=== PATIENT | female | born 1990 | race Caucasian/White ===

== ENCOUNTER 2016-12-15 03:53 | Inpatient (IN) | payer OTHER ==
[~2016-12-15] VITALS: Ht 162.6 cm; Wt 76.6 kg
[~2016-12-15 03:53] MED LIST: ARIP1TAB7 PO; BENZ0.5T14 PO; CIPR-173 PO; GABA600T PO; HYDR25CA PO; INSLANTI; INSLISPI SC; METO-169 PO; PANT40T PO; PRAV20TA3 PO; SUCR1TAB PO
[2016-12-15] MEDS ORDERED: ONDANSETRON HCL 4 MG/2 ML VIAL IV ONE ×2 (04:15→04:45)
[2016-12-15] MEDS ORDERED: NALBUPHINE HCL 10 MG/1ml INJECTION IV ONE (04:45)
[2016-12-15] MEDS ORDERED: SODIUM CHLORIDE 0.9% 2,000 ML IV ONE (04:45)
[2016-12-15] MEDS ORDERED: DEXTROSE (50%) 50ML SYRG IV ONE (04:45)
[2016-12-15 04:52] LABS: Basophils # (auto) 0.1 uL; Basophils % (auto) 0.7 % (0.0-2.0); CONDITION Y; Eosinophils # (auto) 0 uL; Hematocrit 48.5 % (36.0-46.0); Hemoglobin 16.4 g/dL (12.2-16.2); Lymphocytes # (auto) 1.3 uL; Lymphocytes % (auto) 7.4 % (10.0-50.0); Mean Corpuscular Hgb Conc. 33.8 g/dL (32.0-36.0); Mean Platelet Volume 7.5 fL (7.4-10.4); Monocytes # (auto) 0.9 uL; Neutrophils # (auto) 15.5 uL; Neutrophils % (auto) 86.9 % (37.0-80.0); Platelet Count (auto) 398 10^3/uL (140-450); Red Cell Distribution Width 14.9 % (11.6-16.0); White Blood Cell 17.9 10^3/uL (4.4-10.8)
[2016-12-15 05:04] LABS: Albumin 3.8 g/dL (3.4-5.0); Amylase 69 U/L (25-115); Anion Gap 23 (5-15); Aspartate Aminotransferase 22 U/L (15-37); BUN/Creatinine Ratio 7.1; Blood Urea Nitrogen 14 mg/dL (7-18); Calcium 9.2 mg/dL (8.5-10.1); Carbon Dioxide 15 mmol/L (21-32); Chloride 109 mmol/L (98-107); GFR African American 39 mL/min; GFR Non-African American 32 mL/min; Glucose 56 mg/dL (74-106); Magnesium 2.1 mg/dL (1.6-2.6); Potassium 3.7 mmol/L (3.5-5.1); Sodium 147 mmol/L (136-145)
[2016-12-15 05:10] LABS: Alkaline Phosphatase 110 U/L (45-117); Bilirubin, Total 0.8 mg/dL (0.2-1.0); INR 0.93 (0.9-1.15); Partial Thromboplastin Time 21.5 sec (22.64-33.71); Prothrombin Time 10.1 sec (9.37-12.3); Total Protein 8.5 g/dL (6.4-8.2)
[2016-12-15 05:25] LABS: Allen Test Yes; Base Excess -4.2 mmol/L (-2.0-2.0); Blood 02Sat 96.1 % (96-100); Blood COHb 0.7 % (0.5-1.5); Blood MetHb 0.4 % (0.0-1.5); HCO3 18.7 mmol/L (22-26.0); HHb 3.9 % (0.0-5.0); MODE ROOM AIR; PCO2 29.5 mmHg (35.0-45.0); PCO2(T) 29.5 mmHg (35.0-45.0); PO2 79.2 mmHg (80.0-100.0); PO2(T) 79.2 mmHg (80.0-100.0); Sample Type Arterial; pH 7.419 (7.350-7.450)
[2016-12-15 07:19] LABS: Lactic Acid w/Reflex 3.2 mmol/L (0.4-2.0)
[2016-12-15 07:48] LABS: REFLEX LACTIC ACID YES OR NO YES
[2016-12-15] MEDS ORDERED: NITROGLYCERIN 0.4 MG SL TAB SL PRN (08:00)
[2016-12-15] MEDS ORDERED: DEXTROSE (50%) 50ML SYRG IV PRN ×2 (08:00→16:00)
[2016-12-15] MEDS ORDERED: DEXTROSE 10% 1,000 ML IV ONE (08:00)
[2016-12-15] MEDS: InsuLIN REG 1unit/0.01ml Soln (100units/ml) SC SCH ×5 (08:00→23:59)
[2016-12-15] MEDS ORDERED: SODIUM CHLORIDE 0.9% 1,000 ML IV ONE (08:00)
[2016-12-15] MEDS: ACCU-CHEK COMFORT CURVE STRIP VI SCH ×6 (08:05→23:58)
[2016-12-15] MEDS: MORPHINE SULF INJ 2 MG/ML SYRINGE 1ML IV PRN (08:05)
[2016-12-15] MEDS: ONDANSETRON HCL 4 MG/2 ML VIAL IV PRN ×2 (08:05→12:31)
[2016-12-15] MEDS ORDERED: ALPR0.5T PO (08:08)
[2016-12-15 08:35] LABS: BUN/Creatinine Ratio 9.7; Calcium 8.7 mg/dL (8.5-10.1); Potassium 4.3 mmol/L (3.5-5.1)
[2016-12-15] MEDS ORDERED: SODIUM CHLORIDE 0.9% 1,000 ML IV SCH (09:00)
[2016-12-15] MEDS ORDERED: PANTOPRAZOLE 40 MG/10 ML VIAL IV SCH (10:00)
[2016-12-15] MEDS: BENZTROPINE MESY 0.5 MG TAB PO SCH (10:33)
[2016-12-15] MEDS: METOPROLOL TARTRATE 50 MG TAB PO SCH ×2 (10:33→21:33)
[2016-12-15] MEDS: ENOXAPARIN SOD 40 MG/0.4 ML SYRINGE SC SCH (10:34)
[2016-12-15] MEDS: ACETAMINOPHEN 325 MG TAB PO PRN ×2 (10:37→21:35)
[2016-12-15 10:54] LABS: Urine Color Yellow (Yellow); Urine Hyaline Cast MANY /lpf (0 - 2); Urine Mucus FEW (None Seen); Urine Nitrite Negative (Negative); Urine RBC 1 /hpf (0 - 4); Urine Squamous Epithelial Cell FEW /hpf (<5)
[2016-12-15 11:19] LABS: Urine Bilirubin 1+ (Negative); Urine Blood 2+ /uL (Negative); Urine Glucose 4+ mg/dL (Normal); Urine Ketone 4+ (Negative)
[2016-12-15 11:28] VITALS: BP 114/66
[2016-12-15] MEDS: SUCRALFATE 1 GM TAB PO SCH ×3 (11:30→21:33)
[2016-12-15] MEDS ORDERED: IBUP800T24 PO (12:14)
[2016-12-15] MEDS: HYDROcodone-ACET 5/325MG TAB PO PRN ×2 (12:30→20:31)
[2016-12-15] MEDS: GABAPENTIN 300 MG CAP PO SCH ×2 (13:52→21:34)
[2016-12-15 14:01] LABS: BUN/Creatinine Ratio 7.8; Calcium 7.7 mg/dL (8.5-10.1); Potassium 3.7 mmol/L (3.5-5.1)
[2016-12-15] MEDS ORDERED: InsuLIN REG 1unit/0.01ml Soln (100units/ml) SC SCH (16:00)
[2016-12-15] MEDS ORDERED: ALUM & MAG HYDROX-SIMETH LIQ(MAALOX) 30 ML PO ONE (16:15)
[2016-12-15] MEDS: D5W/SOD CHL 0.45%/KCL 20MEQ 1,000 ML IV SCH (16:29)
[2016-12-15] MEDS ORDERED: NICOTINE 7MG/24HR TOPICAL PATCH TD ONE (16:45)
[2016-12-15 17:20] VITALS: BP 135/97
[2016-12-15] MEDS: PANTOPRAZOLE 40 MG/10 ML VIAL IV SCH (21:32)
[2016-12-15] MEDS: PRAVASTATIN SODIUM 20 MG TAB PO SCH (21:34)
[2016-12-15] MEDS: TEMAZEPAM 15 MG CAP PO PRN (21:35)
[2016-12-15 21:51] LABS: Calcium 7.5 mg/dL (8.5-10.1); Potassium 3.5 mmol/L (3.5-5.1)
[2016-12-15 22:00] VITALS: BP 132/79
[2016-12-15] MEDS ORDERED: cefTRIAXone 1GM/50ML D5W 50 ML IV ONE (23:30)
[2016-12-16 04:00] VITALS: BP 158/93
[2016-12-16] MEDS: InsuLIN REG 1unit/0.01ml Soln (100units/ml) SC SCH ×5 (04:11→20:00)
[2016-12-16] MEDS: ACCU-CHEK COMFORT CURVE STRIP VI SCH ×5 (04:11→21:10)
[2016-12-16] MEDS: D5W/SOD CHL 0.45%/KCL 20MEQ 1,000 ML IV SCH ×4 (04:12→17:36)
[2016-12-16] MEDS: GABAPENTIN 300 MG CAP PO SCH ×3 (05:38→21:20)
[2016-12-16] MEDS: SUCRALFATE 1 GM TAB PO SCH ×4 (06:20→21:21)
[2016-12-16 06:25] LABS: Basophils # (auto) 0.1 uL; Basophils % (auto) 0.6 % (0.0-2.0); CONDITION Y; Eosinophils # (auto) 0.1 uL; Eosinophils % (auto) 0.6 % (0.0-7.0); Hematocrit 41.3 % (36.0-46.0); Lymphocytes # (auto) 3.4 uL; Lymphocytes % (auto) 34.4 % (10.0-50.0); Mean Corpuscular Hemoglobin 30.6 pg (28.0-32.0); Mean Corpuscular Hgb Conc. 33.9 g/dL (32.0-36.0); Mean Corpuscular Volume 90.3 fL (80.0-100.0); Mean Platelet Volume 7.8 fL (7.4-10.4); Monocytes # (auto) 0.6 uL; Monocytes % (auto) 6.3 % (0.0-12.0); Neutrophils # (auto) 5.8 uL; Neutrophils % (auto) 58.1 % (37.0-80.0); Platelet Count (auto) 292 10^3/uL (140-450); Red Cell Distribution Width 15.7 % (11.6-16.0)
[2016-12-16 06:37] LABS: Potassium 3.5 mmol/L (3.5-5.1)
[2016-12-16 06:42] LABS: Albumin 2.9 g/dL (3.4-5.0); Calcium 8.1 mg/dL (8.5-10.1)
[2016-12-16 06:45] LABS: Bilirubin, Total 0.4 mg/dL (0.2-1.0); Total Protein 6.3 g/dL (6.4-8.2)
[2016-12-16 07:45] VITALS: BP 132/82
[2016-12-16 08:00] VITALS: BP 90/43
[2016-12-16] MEDS: ONDANSETRON HCL 4 MG/2 ML VIAL IV PRN (08:16)
[2016-12-16] MEDS: PANTOPRAZOLE 40 MG/10 ML VIAL IV SCH ×2 (09:42→21:18)
[2016-12-16] MEDS: BENZTROPINE MESY 0.5 MG TAB PO SCH (09:42)
[2016-12-16] MEDS: METOPROLOL TARTRATE 50 MG TAB PO SCH ×2 (09:43→21:22)
[2016-12-16] MEDS: NICOTINE 7MG/24HR TOPICAL PATCH TD SCH (09:44)
[2016-12-16] MEDS: HYDROcodone-ACET 5/325MG TAB PO PRN ×2 (09:54→14:41)
[2016-12-16] MEDS: ENOXAPARIN SOD 40 MG/0.4 ML SYRINGE SC SCH (11:41)
[2016-12-16 12:12] VITALS: BP 94/54
[2016-12-16] MEDS: ALUM & MAG HYDROX-SIMETH LIQ(MAALOX) 30 ML PO PRN ×2 (14:40→21:18)
[2016-12-16 15:30] VITALS: BP 105/65
[2016-12-16] MEDS ORDERED: NovoloG Insulin 1unit/0.01ml Soln (100units/ml) SC SCH ×3 (17:00)
[2016-12-16] MEDS: NovoloG Insulin 1unit/0.01ml Soln (100units/ml) SC SCH (18:25)
[2016-12-16] MEDS: PRAVASTATIN SODIUM 20 MG TAB PO SCH (21:20)
[2016-12-16] MEDS: ALPRAZolam 0.5 MG TAB PO SCH (21:22)
[2016-12-16 22:00] VITALS: BP 113/70
[2016-12-16] MEDS ORDERED: cefTRIAXone 1GM/50ML D5W 50 ML IV SCH (22:00)
[2016-12-16] MEDS: INSULIN DETEMIR(LEVEMIR) 1unit/0.01ml Soln (100units/ml) SC SCH (22:00)
[2016-12-16] MEDS: MORPHINE SULF INJ 2 MG/ML SYRINGE 1ML IV PRN (22:07)
[2016-12-17] MEDS: InsuLIN REG 1unit/0.01ml Soln (100units/ml) SC SCH ×3 (00:09→09:39)
[2016-12-17] MEDS: ACCU-CHEK COMFORT CURVE STRIP VI SCH ×6 (00:09→22:11)
[2016-12-17] MEDS: HYDROcodone-ACET 5/325MG TAB PO PRN ×5 (00:14→21:05)
[2016-12-17] MEDS: D5W/SOD CHL 0.45%/KCL 20MEQ 1,000 ML IV SCH ×2 (03:31→09:39)
[2016-12-17 05:00] VITALS: BP 111/75
[2016-12-17] MEDS: ALPRAZolam 0.5 MG TAB PO SCH ×3 (07:22→22:10)
[2016-12-17] MEDS: GABAPENTIN 300 MG CAP PO SCH ×3 (07:22→22:10)
[2016-12-17] MEDS: SUCRALFATE 1 GM TAB PO SCH ×4 (07:23→22:00)
[2016-12-17 08:32] VITALS: BP 123/84
[2016-12-17] MEDS: NovoloG Insulin 1unit/0.01ml Soln (100units/ml) SC SCH ×3 (09:40→18:32)
[2016-12-17] MEDS: ENOXAPARIN SOD 40 MG/0.4 ML SYRINGE SC SCH (10:00)
[2016-12-17] MEDS: NICOTINE 7MG/24HR TOPICAL PATCH TD SCH (10:00)
[2016-12-17] MEDS: PANTOPRAZOLE 40 MG/10 ML VIAL IV SCH ×2 (10:01→22:11)
[2016-12-17] MEDS: BENZTROPINE MESY 0.5 MG TAB PO SCH (10:01)
[2016-12-17] MEDS: METOPROLOL TARTRATE 50 MG TAB PO SCH ×2 (10:02→22:11)
[2016-12-17 13:00] VITALS: BP 105/67
[2016-12-17 16:43] VITALS: BP 135/91
[2016-12-17] MEDS ORDERED: DEXTROSE (50%) 50ML SYRG IV PRN (18:30)
[2016-12-17 22:00] VITALS: BP 130/91
[2016-12-17] MEDS ORDERED: InsuLIN REG 1unit/0.01ml Soln (100units/ml) SC SCH (22:00)
[2016-12-17] MEDS: PRAVASTATIN SODIUM 20 MG TAB PO SCH (22:10)
[2016-12-17] MEDS: INSULIN DETEMIR(LEVEMIR) 1unit/0.01ml Soln (100units/ml) SC SCH (22:18)
[2016-12-17] MEDS: TEMAZEPAM 15 MG CAP PO PRN (23:18)
[2016-12-18 05:00] VITALS: BP 133/88
[2016-12-18] MEDS: ACCU-CHEK COMFORT CURVE STRIP VI SCH ×4 (06:26→22:58)
[2016-12-18] MEDS: ALPRAZolam 0.5 MG TAB PO SCH ×3 (06:26→21:34)
[2016-12-18] MEDS: GABAPENTIN 300 MG CAP PO SCH ×3 (06:26→21:34)
[2016-12-18] MEDS: InsuLIN REG 1unit/0.01ml Soln (100units/ml) SC SCH ×2 (06:27→12:00)
[2016-12-18] MEDS: SUCRALFATE 1 GM TAB PO SCH ×4 (07:00→21:34)
[2016-12-18] MEDS: NovoloG Insulin 1unit/0.01ml Soln (100units/ml) SC SCH ×3 (08:00→18:13)
[2016-12-18] MEDS: HYDROcodone-ACET 5/325MG TAB PO PRN ×4 (08:10→21:14)
[2016-12-18 08:47] VITALS: BP 131/86
[2016-12-18] MEDS: BENZTROPINE MESY 0.5 MG TAB PO SCH (10:00)
[2016-12-18] MEDS: NICOTINE 7MG/24HR TOPICAL PATCH TD SCH (10:00)
[2016-12-18] MEDS: ENOXAPARIN SOD 40 MG/0.4 ML SYRINGE SC SCH (10:00)
[2016-12-18] MEDS: PANTOPRAZOLE 40 MG/10 ML VIAL IV SCH ×2 (10:19→21:34)
[2016-12-18] MEDS: METOPROLOL TARTRATE 50 MG TAB PO SCH ×2 (10:52→21:35)
[2016-12-18 12:39] VITALS: BP 132/78
[2016-12-18 17:00] VITALS: BP 132/87
[2016-12-18] MEDS: PRAVASTATIN SODIUM 20 MG TAB PO SCH (21:34)
[2016-12-18 22:00] VITALS: BP 131/86
[2016-12-18] MEDS: INSULIN DETEMIR(LEVEMIR) 1unit/0.01ml Soln (100units/ml) SC SCH (22:57)
[2016-12-19] MEDS: HYDROcodone-ACET 5/325MG TAB PO PRN (04:48)
[2016-12-19] MEDS: ALUM & MAG HYDROX-SIMETH LIQ(MAALOX) 30 ML PO PRN (04:51)
[2016-12-19 05:00] VITALS: BP_SYST 156; BP_SYST 159; BP_DIAS 95; BP_DIAS 99
[2016-12-19 06:06] LABS: BUN/Creatinine Ratio 14.6; Calcium 8.3 mg/dL (8.5-10.1); Potassium 3.7 mmol/L (3.5-5.1)
[2016-12-19] MEDS: SUCRALFATE 1 GM TAB PO SCH ×2 (06:06→12:04)
[2016-12-19] MEDS: GABAPENTIN 300 MG CAP PO SCH ×2 (06:06→13:59)
[2016-12-19] MEDS: ALPRAZolam 0.5 MG TAB PO SCH ×2 (06:06→13:59)
[2016-12-19] MEDS: ACCU-CHEK COMFORT CURVE STRIP VI SCH ×2 (06:08→12:04)
[2016-12-19 06:13] VITALS: BP 156/92
[2016-12-19] MEDS: NovoloG Insulin 1unit/0.01ml Soln (100units/ml) SC SCH ×2 (08:32→12:00)
[2016-12-19 09:00] VITALS: BP 147/89
[2016-12-19] MEDS: BENZTROPINE MESY 0.5 MG TAB PO SCH (10:00)
[2016-12-19] MEDS: PANTOPRAZOLE 40 MG/10 ML VIAL IV SCH (10:36)
[2016-12-19] MEDS: ENOXAPARIN SOD 40 MG/0.4 ML SYRINGE SC SCH (10:36)
[2016-12-19] MEDS: METOPROLOL TARTRATE 50 MG TAB PO SCH (10:38)
[2016-12-19] MEDS: NICOTINE 7MG/24HR TOPICAL PATCH TD SCH (10:41)
[2016-12-19 13:11] VITALS: BP 160/100
[2016-12-19 13:21] VITALS: BP 160/100
[2016-12-19 13:37] VITALS: BP 160/100
== END 2016-12-19 14:00 | disposition home or self-care (01) | DRG 420 ==
LOC: ER 03:55 → TELE 03:56 → TELE-E-ADS 11:01 → TELE-EAST 13:31
PROVIDERS: ADMIT Nurse Practitioner; ATTEND Internal Medicine Pulmonary Disease
DX: E10.10 Type 1 diabetes mellitus with ketoacidosis without coma (principal); E87.0 Hyperosmolality and hypernatremia; E87.8 Other disorders of electrolyte and fluid balance, not elsewhere classified; E86.0 Dehydration; K21.9 Gastro-esophageal reflux disease without esophagitis; I10 Essential (primary) hypertension; E78.5 Hyperlipidemia, unspecified; F15.90 Other stimulant use, unspecified, uncomplicated; F41.9 Anxiety disorder, unspecified; M94.0 Chondrocostal junction syndrome [Tietze]; K25.9 Gastric ulcer, unspecified as acute or chronic, without hemorrhage or perforation; K29.70 Gastritis, unspecified, without bleeding; F17.210 Nicotine dependence, cigarettes, uncomplicated; Z79.4 Long term (current) use of insulin; Z79.899 Other long term (current) drug therapy; Z80.1 Family history of malignant neoplasm of trachea, bronchus and lung; Z82.49 Family history of ischemic heart disease and other diseases of the circulatory system; Z80.9 Family history of malignant neoplasm, unspecified
CPT/HCPCS: 36415; 36600; 71010; 71250; 74176; 76705; 80048; 80053; 80307; 80320; 81001; 81025; 82010; 82150; 82805; 82962; 83036; 83605; 83690; 83735; 83930; 84484; 84702; 85025; 85610; 85730; 93005; 96361; 96374; 96375; 99291; C9113; J0696; J1815; J2405

== ENCOUNTER 2016-12-20 20:10 | Inpatient (IN) | payer SELFPAY ==
[~2016-12-20] VITALS: Ht 162.6 cm; Wt 71.8 kg
[~2016-12-20 20:10] MED LIST changes: +ALPR0.5T PO; -BENZ0.5T14 PO; -CIPR-173 PO; -HYDR25CA PO; +IBUP800T24 PO; -PANT40T PO; -PRAV20TA3 PO; -SUCR1TAB PO
[2016-12-20] MEDS ORDERED: SODIUM CHLORIDE 0.9% 1,000 ML IV ONE ×2 (20:45→21:45)
[2016-12-20] MEDS ORDERED: MORPHINE SULF INJ 2 MG/ML SYRINGE 1ML IV ONE (20:45)
[2016-12-20] MEDS ORDERED: ONDANSETRON HCL 4 MG/2 ML VIAL IV ONE (20:45)
[2016-12-20 21:14] LABS: Basophils # (auto) 0 uL; Basophils % (auto) 0.3 % (0.0-2.0); CONDITION Y; Eosinophils # (auto) 0 uL; Eosinophils % (auto) 0.1 % (0.0-7.0); Hemoglobin 13.9 g/dL (12.2-16.2); Lymphocytes # (auto) 1.4 uL; Lymphocytes % (auto) 14.8 % (10.0-50.0); Mean Corpuscular Hemoglobin 29.8 pg (28.0-32.0); Mean Corpuscular Hgb Conc. 33.2 g/dL (32.0-36.0); Mean Corpuscular Volume 89.9 fL (80.0-100.0); Mean Platelet Volume 7.7 fL (7.4-10.4); Monocytes # (auto) 0.5 uL; Monocytes % (auto) 5.2 % (0.0-12.0); Neutrophils # (auto) 7.8 uL; Neutrophils % (auto) 79.6 % (37.0-80.0); Platelet Count (auto) 400 10^3/uL (140-450); Red Cell Distribution Width 15.5 % (11.6-16.0); White Blood Cell 9.8 10^3/uL (4.4-10.8)
[2016-12-20 21:34] LABS: Albumin 3.6 g/dL (3.4-5.0); Anion Gap 29 (5-15); Aspartate Aminotransferase 13 U/L (15-37); BUN/Creatinine Ratio 9.9; Blood Urea Nitrogen 17 mg/dL (7-18); Carbon Dioxide 10 mmol/L (21-32); Chloride 106 mmol/L (98-107); GFR African American 46 mL/min; GFR Non-African American 38 mL/min; Magnesium 2.7 mg/dL (1.6-2.6); Potassium 3.6 mmol/L (3.5-5.1); Sodium 145 mmol/L (136-145)
[2016-12-20 21:38] LABS: Alkaline Phosphatase 120 U/L (45-117); Total Protein 7.6 g/dL (6.4-8.2)
[2016-12-20 21:40] LABS: Glucose 408 mg/dL (74-106)
[2016-12-20] MEDS ORDERED: SODIUM CHLORIDE 0.9% 1,000 ML IVB ONE (21:40)
[2016-12-20 21:46] LABS: INR 0.94 (0.9-1.15); Partial Thromboplastin Time 21.4 sec (22.64-33.71); Prothrombin Time 10.2 sec (9.37-12.3)
[2016-12-20] MEDS ORDERED: InsuLIN R (HUMAN) 100 UNITS in SODIUM CHL 0.9% 99 ML IV SCH (21:52)
[2016-12-20] MEDS ORDERED: SODIUM CHLORIDE 0.9% 1,000 ML IV SCH (21:52)
[2016-12-20 21:54] LABS: B-Type Natriuretic Peptide 58.4 pg/mL (0-100); Temperature: 22.3 C (20.0-25.0)
[2016-12-20] MEDS ORDERED: DEXTROSE (50%) 50ML SYRG IV PRN (22:00)
[2016-12-20 22:12] LABS: Allen Test Modified; Base Excess -7.2 mmol/L (-2.0-2.0); Blood COHb 0.3 % (0.5-1.5); Blood MetHb 0.4 % (0.0-1.5); HCO3 15.7 mmol/L (22-26.0); MODE NASAL CANNULA; O2Hb 96.3 % (94.0-97.0); PCO2 25.7 mmHg (35.0-45.0); PCO2(T) 25.7 mmHg (35.0-45.0); PO2 105.5 mmHg (80.0-100.0); PO2(T) 105.5 mmHg (80.0-100.0); Sample Type Arterial; pH 7.405 (7.350-7.450)
[2016-12-20] MEDS: ACCU-CHEK COMFORT CURVE STRIP VI SCH (22:28)
[2016-12-20] MEDS ORDERED: PANTOPRAZOLE 40 MG/10 ML VIAL IV ONE (22:30)
[2016-12-21] VITALS (21 sets, daily range): BP systolic 95–161; BP diastolic 49–103
[2016-12-21] MEDS: ACCU-CHEK COMFORT CURVE STRIP VI SCH ×9 (00:26→23:47)
[2016-12-21] MEDS ORDERED: DEXTROSE (50%) 50ML SYRG IV PRN ×2 (00:45→17:15)
[2016-12-21] MEDS ORDERED: TEMAZEPAM 15 MG CAP PO PRN (00:45)
[2016-12-21 00:58] LABS: Urine RBC None Seen /hpf (0 - 4)
[2016-12-21 01:07] LABS: Urine Bilirubin Negative (Negative); Urine Blood Negative /uL (Negative); Urine Color Yellow (Yellow); Urine Mucus FEW (None Seen); Urine Nitrite Negative (Negative); Urine Squamous Epithelial Cell FEW /hpf (<5); Urine Urobilinogen Normal (Negative)
[2016-12-21 01:08] LABS: Urine Glucose 4+ mg/dL (Normal); Urine Ketone 4+ (Negative)
[2016-12-21] MEDS: ONDANSETRON HCL 4 MG/2 ML VIAL IV PRN ×3 (01:18→16:13)
[2016-12-21] MEDS: HYDROcodone-ACET 5/325MG TAB PO PRN ×4 (01:24→16:12)
[2016-12-21] MEDS ORDERED: SODIUM CHLORIDE 0.9% 1,000 ML IV SCH (01:52)
[2016-12-21] MEDS: SODIUM CHLORIDE 0.9% 1,000 ML IV SCH ×3 (03:44→19:10)
[2016-12-21] MEDS: InsuLIN REG 1unit/0.01ml Soln (100units/ml) SC SCH ×4 (03:50→16:00)
[2016-12-21] MEDS: GABAPENTIN 300 MG CAP PO SCH ×3 (05:53→21:42)
[2016-12-21 05:58] LABS: BUN/Creatinine Ratio 12.5; Calcium 8.7 mg/dL (8.5-10.1)
[2016-12-21] MEDS: METOPROLOL TARTRATE 50 MG TAB PO SCH ×2 (10:00→21:43)
[2016-12-21] MEDS: PANTOPRAZOLE 40 MG/10 ML VIAL IV SCH (10:07)
[2016-12-21 10:16] LABS: Calcium 8.7 mg/dL (8.5-10.1); Potassium 4.2 mmol/L (3.5-5.1)
[2016-12-21 10:18] LABS: BUN/Creatinine Ratio 12.6
[2016-12-21 16:43] LABS: Calcium 8.5 mg/dL (8.5-10.1); Potassium 4.3 mmol/L (3.5-5.1)
[2016-12-21 16:46] LABS: BUN/Creatinine Ratio 8.4
[2016-12-21] MEDS ORDERED: ACCU-CHEK COMFORT CURVE STRIP VI SCH (18:00)
[2016-12-21] MEDS: InsuLIN R (HUMAN) 100 UNITS in SODIUM CHL 0.9% 99 ML IV SCH ×3 (19:30→23:48)
[2016-12-21] MEDS: ACETAMINOPHEN 325 MG TAB PO PRN (21:42)
[2016-12-21 22:05] LABS: Calcium 8.2 mg/dL (8.5-10.1); Potassium 3.8 mmol/L (3.5-5.1)
[2016-12-22] VITALS (20 sets, daily range): BP systolic 94–142; BP diastolic 54–100
[2016-12-22] MEDS: SODIUM CHLORIDE 0.9% 1,000 ML IV SCH ×2 (00:54→06:04)
[2016-12-22] MEDS: ACCU-CHEK COMFORT CURVE STRIP VI SCH ×8 (01:21→21:54)
[2016-12-22] MEDS: InsuLIN R (HUMAN) 100 UNITS in SODIUM CHL 0.9% 99 ML IV SCH (01:52)
[2016-12-22 04:35] LABS: BUN/Creatinine Ratio 9.3; Basophils # (auto) 0 uL; Basophils % (auto) 0.5 % (0.0-2.0); CONDITION Y; Calcium 7.9 mg/dL (8.5-10.1); Eosinophils # (auto) 0.1 uL; Eosinophils % (auto) 1.1 % (0.0-7.0); Hematocrit 35.1 % (36.0-46.0); Hemoglobin 11.6 g/dL (12.2-16.2); Lymphocytes # (auto) 4.2 uL; Mean Corpuscular Hemoglobin 30.2 pg (28.0-32.0); Mean Corpuscular Hgb Conc. 33.2 g/dL (32.0-36.0); Mean Corpuscular Volume 91.2 fL (80.0-100.0); Mean Platelet Volume 7.4 fL (7.4-10.4); Monocytes # (auto) 0.7 uL; Monocytes % (auto) 6.7 % (0.0-12.0); Neutrophils # (auto) 4.7 uL; Neutrophils % (auto) 48.7 % (37.0-80.0); Platelet Count (auto) 347 10^3/uL (140-450); Potassium 3.4 mmol/L (3.5-5.1); Red Cell Distribution Width 15.9 % (11.6-16.0); White Blood Cell 9.7 10^3/uL (4.4-10.8)
[2016-12-22] MEDS ORDERED: DEXTROSE (50%) 50ML SYRG IV PRN ×2 (06:00→11:00)
[2016-12-22] MEDS ORDERED: ACCU-CHEK COMFORT CURVE STRIP VI SCH (08:00)
[2016-12-22] MEDS ORDERED: InsuLIN REG 1unit/0.01ml Soln (100units/ml) SC SCH (08:00)
[2016-12-22] MEDS: PANTOPRAZOLE 40 MG/10 ML VIAL IV SCH (09:48)
[2016-12-22] MEDS: METOPROLOL TARTRATE 50 MG TAB PO SCH ×2 (10:52→21:54)
[2016-12-22] MEDS: ACETAMINOPHEN 325 MG TAB PO PRN ×2 (10:53→21:55)
[2016-12-22] MEDS ORDERED: POTASSIUM CHL 20 Meq TABLET PO ONE (11:00)
[2016-12-22] MEDS: InsuLIN REG 1unit/0.01ml Soln (100units/ml) SC SCH ×3 (11:36→21:54)
[2016-12-22] MEDS: INSULIN DETEMIR(LEVEMIR) 1unit/0.01ml Soln (100units/ml) SC SCH (22:20)
[2016-12-23 04:30] VITALS: BP 147/89
[2016-12-23] MEDS: InsuLIN REG 1unit/0.01ml Soln (100units/ml) SC SCH ×4 (07:00→22:52)
[2016-12-23] MEDS: INSULIN DETEMIR(LEVEMIR) 1unit/0.01ml Soln (100units/ml) SC SCH (07:00)
[2016-12-23] MEDS: ACCU-CHEK COMFORT CURVE STRIP VI SCH ×4 (07:01→22:52)
[2016-12-23 09:29] VITALS: BP 125/89
[2016-12-23] MEDS: PANTOPRAZOLE 40 MG/10 ML VIAL IV SCH (10:39)
[2016-12-23] MEDS: METOPROLOL TARTRATE 50 MG TAB PO SCH ×2 (10:40→22:53)
[2016-12-23] MEDS: NovoloG Insulin 1unit/0.01ml Soln (100units/ml) SC SCH ×2 (11:30→17:00)
[2016-12-23 11:59] VITALS: BP 129/71
[2016-12-23 17:01] VITALS: BP 117/66
[2016-12-23 22:00] VITALS: BP 153/91
[2016-12-23] MEDS ORDERED: INSULIN DETEMIR(LEVEMIR) 1unit/0.01ml Soln (100units/ml) SC SCH (22:00)
[2016-12-24 05:00] VITALS: BP 156/93
[2016-12-24] MEDS: NovoloG Insulin 1unit/0.01ml Soln (100units/ml) SC SCH ×3 (06:01→17:00)
[2016-12-24] MEDS: ACCU-CHEK COMFORT CURVE STRIP VI SCH ×3 (06:01→16:41)
[2016-12-24] MEDS: InsuLIN REG 1unit/0.01ml Soln (100units/ml) SC SCH ×3 (06:02→17:00)
[2016-12-24] MEDS ORDERED: INSULIN DETEMIR(LEVEMIR) 1unit/0.01ml Soln (100units/ml) SC SCH (07:00)
[2016-12-24 09:00] VITALS: BP 149/98
[2016-12-24] MEDS: PANTOPRAZOLE 40 MG/10 ML VIAL IV SCH (10:28)
[2016-12-24] MEDS: METOPROLOL TARTRATE 50 MG TAB PO SCH (10:29)
[2016-12-24 13:00] VITALS: BP 112/77
[2016-12-24 17:00] VITALS: BP 127/87
[2016-12-24 18:37] VITALS: BP 112/77
== END 2016-12-24 20:16 | disposition home or self-care (01) | DRG 637 ==
LOC: EDBD 20:10 → ER 20:12 → TELE 20:13 → CENTRAL 12-21 01:25 → ICU WEST 12-21 18:45 → TELE-WESTW 12-22 13:44 → WEST WING 12-22 19:41
PROVIDERS: ADMIT Nurse Practitioner; ATTEND Internal Medicine Pulmonary Disease
DX: E10.10 Type 1 diabetes mellitus with ketoacidosis without coma (principal); N17.0 Acute kidney failure with tubular necrosis; J98.11 Atelectasis; Z59.0 Homelessness; K21.9 Gastro-esophageal reflux disease without esophagitis; K29.00 Acute gastritis without bleeding; Z72.0 Tobacco use; E86.0 Dehydration; Z91.14 Patient's other noncompliance with medication regimen; Z91.19 Patient's noncompliance with other medical treatment and regimen; E78.5 Hyperlipidemia, unspecified; Z80.1 Family history of malignant neoplasm of trachea, bronchus and lung; Z82.49 Family history of ischemic heart disease and other diseases of the circulatory system
CPT/HCPCS: 36415; 36600; 71010; 80048; 80053; 81001; 81025; 82010; 82805; 82962; 83735; 83880; 84484; 85025; 85610; 85730; 87081; 93005; 96361; 96374; 96375; C9113; J1815; J2405

== ENCOUNTER 2016-12-29 21:09 | Emergency (ER) | payer MEDICAID, OTHER ==
[~2016-12-29] VITALS: Ht 160 cm; Wt 63.5 kg
[2016-12-29 21:47] LABS: Basophils # (auto) 0 uL; Basophils % (auto) 0.4 % (0.0-2.0); CONDITION Y; Eosinophils # (auto) 0.1 uL; Eosinophils % (auto) 0.6 % (0.0-7.0); Hemoglobin 14.3 g/dL (12.2-16.2); Lymphocytes # (auto) 3.3 uL; Mean Corpuscular Hemoglobin 30.3 pg (28.0-32.0); Mean Corpuscular Hgb Conc. 33.2 g/dL (32.0-36.0); Mean Corpuscular Volume 91.4 fL (80.0-100.0); Mean Platelet Volume 7.2 fL (7.4-10.4); Monocytes # (auto) 0.6 uL; Monocytes % (auto) 6.4 % (0.0-12.0); Neutrophils # (auto) 5.4 uL; Neutrophils % (auto) 57.6 % (37.0-80.0); Platelet Count (auto) 361 10^3/uL (140-450); Red Cell Distribution Width 16.3 % (11.6-16.0); White Blood Cell 9.3 10^3/uL (4.4-10.8)
[2016-12-29 22:09] LABS: Acetaminophen < 2.0 ug/mL (10-30); Salicylate < 1.7 mg/dL (2.8-20.0)
[2016-12-29 22:16] LABS: Albumin 3.8 g/dL (3.4-5.0); Alkaline Phosphatase 107 U/L (45-117); Anion Gap 9 (5-15); Aspartate Aminotransferase 11 U/L (15-37); BUN/Creatinine Ratio 17.5; Bilirubin, Total 0.7 mg/dL (0.2-1.0); Blood Urea Nitrogen 17 mg/dL (7-18); Calcium 9.7 mg/dL (8.5-10.1); Carbon Dioxide 30 mmol/L (21-32); Chloride 106 mmol/L (98-107); GFR African American 88 mL/min; GFR Non-African American 73 mL/min; Glucose 151 mg/dL (74-106); Potassium 3.8 mmol/L (3.5-5.1); Sodium 145 mmol/L (136-145); Total Protein 7.6 g/dL (6.4-8.2)
[2016-12-29] MEDS ORDERED: LORazepam 0.5 MG TAB PO ONE (22:45)
[2016-12-29 23:40] VITALS: BP 137/62
== END 2016-12-29 23:45 | disposition home or self-care (01) ==
LOC: EDBD 21:09 → ER 21:32
DX: E10.65 Type 1 diabetes mellitus with hyperglycemia (principal); F41.9 Anxiety disorder, unspecified; K21.9 Gastro-esophageal reflux disease without esophagitis; E78.5 Hyperlipidemia, unspecified; F17.210 Nicotine dependence, cigarettes, uncomplicated; Z59.0 Homelessness; F15.10 Other stimulant abuse, uncomplicated; F12.10 Cannabis abuse, uncomplicated
CPT/HCPCS: 36415; 80053; 80320; 80329; 82962; 85025; 93005

== ENCOUNTER 2017-05-07 19:57 | Emergency (ER) | payer MEDICAID ==
[~2017-05-07] VITALS: Ht 162.6 cm; Wt 74.8 kg
[2017-05-07 20:00] VITALS: BP 148/91
[2017-05-07 23:17] LABS: Basophils # (auto) 0 uL; Basophils % (auto) 0.6 % (0.0-2.0); Eosinophils # (auto) 0 uL; Eosinophils % (auto) 0.6 % (0.0-7.0); Hematocrit 43.2 % (36.0-46.0); Hemoglobin 14.1 g/dL (12.2-16.2); Lymphocytes # (auto) 2.2 uL; Mean Corpuscular Hemoglobin 30.9 pg (28.0-32.0); Mean Corpuscular Hgb Conc. 32.6 g/dL (32.0-36.0); Mean Corpuscular Volume 94.8 fL (80.0-100.0); Monocytes # (auto) 0.5 uL; Monocytes % (auto) 6.8 % (0.0-12.0); Neutrophils # (auto) 4.8 uL; Platelet Count (auto) 432 10^3/uL (140-450); Red Blood Cells 4.56 10^6/uL (4.0-5.20); White Blood Cell 7.7 10^3/uL (4.4-10.8)
[2017-05-07 23:31] LABS: Albumin 3.9 g/dL (3.4-5.0); BUN/Creatinine Ratio 15.6; Bilirubin, Total 1.2 mg/dL (0.2-1.0); Magnesium 2.6 mg/dL (1.6-2.6); Potassium 4.4 mmol/L (3.5-5.1)
== END 2017-05-07 23:00 | disposition left against medical advice (07) ==
LOC: EDBD 19:57 → EDSEX 19:57 → ER 20:22
DX: R73.9 Hyperglycemia, unspecified (principal); Z53.21 Procedure and treatment not carried out due to patient leaving prior to being seen by health care provider
CPT/HCPCS: 36415; 80053; 82962; 83735; 85025

== ENCOUNTER 2017-06-26 03:51 | Emergency (ER) | payer MEDICAID ==
[~2017-06-26] VITALS: Ht 157.5 cm; Wt 56.7 kg
[2017-06-26 07:55] LABS: Basophils # (auto) 0.1 uL; Eosinophils # (auto) 0 uL; Eosinophils % (auto) 0.3 % (0.0-7.0); Hematocrit 40.1 % (36.0-46.0); Hemoglobin 13.6 g/dL (12.2-16.2); Lymphocytes # (auto) 3.9 uL; Lymphocytes % (auto) 53.2 % (10.0-50.0); Mean Corpuscular Hemoglobin 30.4 pg (28.0-32.0); Mean Corpuscular Volume 89.4 fL (80.0-100.0); Monocytes # (auto) 0.5 uL; Monocytes % (auto) 7.4 % (0.0-12.0); Neutrophils # (auto) 2.7 uL; Neutrophils % (auto) 37.1 % (37.0-80.0); Nucleated Red Blood Cells % 0.1 %; Platelet Count (auto) 190 10^3/uL (140-450); Red Blood Cells 4.48 10^6/uL (4.0-5.20); Red Cell Distribution Width 14.2 % (11.8-14.3); White Blood Cell 7.3 10^3/uL (4.4-10.8)
[2017-06-26 08:23] LABS: Albumin 3.2 g/dL (3.4-5.0); BUN/Creatinine Ratio 13.2; Calcium 8.3 mg/dL (8.5-10.1)
[2017-06-26 08:26] LABS: Bilirubin, Total 0.6 mg/dL (0.2-1.0)
[2017-06-26 10:21] LABS: Alcohol, Urine < 3.0 mg/dL (0-5); Barbiturate Scree,Urine NEGATIVE (NEGATIVE); Benzodiazephine Screen, Urine NEGATIVE (NEGATIVE); Cannabinoid Screen, Urine NEGATIVE (NEGATIVE); Cocaine Screen, Urine NEGATIVE (NEGATIVE); Opiate Scree,Urine NEGATIVE (NEGATIVE); Phencyclidine Screen, Urine NEGATIVE (NEGATIVE); Urine Amorphous Crystal FEW /hpf (None Seen); Urine Bacteria MOD /hpf (None Seen); Urine Blood Negative /uL (Negative); Urine Mucus FEW (None Seen); Urine WBC 6 /hpf (0 - 5)
[2017-06-26 10:44] LABS: Amphetamine Screen, Urine POSITIVE (NEGATIVE)
[2017-06-26 11:05] VITALS: BP 129/89
== END 2017-06-26 11:22 | disposition home or self-care (01) ==
LOC: EDBD 03:51 → ER 03:51
DX: F31.9 Bipolar disorder, unspecified (principal); T74.21XA Adult sexual abuse, confirmed, initial encounter; E10.65 Type 1 diabetes mellitus with hyperglycemia; F15.10 Other stimulant abuse, uncomplicated; E46 Unspecified protein-calorie malnutrition; K21.9 Gastro-esophageal reflux disease without esophagitis; E78.5 Hyperlipidemia, unspecified; F17.210 Nicotine dependence, cigarettes, uncomplicated; F12.10 Cannabis abuse, uncomplicated; Z79.4 Long term (current) use of insulin; Z59.0 Homelessness
CPT/HCPCS: 36415; 80053; 80307; 81001; 82962; 84702; 85025

== ENCOUNTER 2017-06-26 15:41 | Emergency (ER) | payer MEDICAID ==
[~2017-06-26] VITALS: Ht 162.6 cm; Wt 59.0 kg
[2017-06-26 15:53] VITALS: BP 145/104
== END 2017-06-26 17:37 | disposition home or self-care (01) ==
LOC: ER 15:47
DX: E11.649 Type 2 diabetes mellitus with hypoglycemia without coma (principal); K21.9 Gastro-esophageal reflux disease without esophagitis; E78.5 Hyperlipidemia, unspecified; F17.210 Nicotine dependence, cigarettes, uncomplicated; Z59.0 Homelessness; Z79.4 Long term (current) use of insulin
CPT/HCPCS: 82962

== ENCOUNTER 2017-07-11 07:09 | Emergency (ER) | payer MEDICAID ==
[~2017-07-11] VITALS: Ht 162.6 cm; Wt 65.8 kg
[2017-07-11] MEDS ORDERED: SODIUM CHLORIDE 0.9% 250 ML IV ONE (08:38)
[2017-07-11 08:47] LABS: Basophils # (auto) 0.1 uL; Eosinophils # (auto) 0 uL; Eosinophils % (auto) 0.2 % (0.0-7.0); Hematocrit 39.3 % (36.0-46.0); Hemoglobin 13.1 g/dL (12.2-16.2); Lymphocytes # (auto) 3.3 uL; Lymphocytes % (auto) 35.5 % (10.0-50.0); Mean Corpuscular Hemoglobin 29.6 pg (28.0-32.0); Mean Corpuscular Hgb Conc. 33.4 g/dL (32.0-36.0); Mean Corpuscular Volume 88.7 fL (80.0-100.0); Monocytes # (auto) 0.6 uL; Neutrophils # (auto) 5.2 uL; Neutrophils % (auto) 56.3 % (37.0-80.0); Nucleated Red Blood Cells % 0.1 %; Platelet Count (auto) 298 10^3/uL (140-450); Red Blood Cells 4.44 10^6/uL (4.0-5.20); Red Cell Distribution Width 14.1 % (11.8-14.3); White Blood Cell 9.3 10^3/uL (4.4-10.8)
[2017-07-11 09:03] LABS: BUN/Creatinine Ratio 14.5; Calcium 8.7 mg/dL (8.5-10.1); Potassium 3.7 mmol/L (3.5-5.1)
[2017-07-11 09:05] LABS: Bilirubin, Total 0.6 mg/dL (0.2-1.0); Total Protein 7.8 g/dL (6.4-8.2)
[2017-07-11 09:06] LABS: Urine Bacteria MANY /hpf (None Seen); Urine Blood 1+ /uL (Negative); Urine Mucus MODERATE (None Seen); Urine Specific Gravity 1.018 (1.001-1.035); Urine WBC 175 /hpf (0 - 5); Urine WBC Clumps PRESENT /hpf (None Seen)
[2017-07-11 09:10] LABS: Urine Pregnacy Test Negative (Negative)
[2017-07-11 09:17] LABS: Amphetamine Screen, Urine POSITIVE (NEGATIVE); Barbiturate Scree,Urine NEGATIVE (NEGATIVE); Benzodiazephine Screen, Urine NEGATIVE (NEGATIVE); Cannabinoid Screen, Urine NEGATIVE (NEGATIVE); Cocaine Screen, Urine NEGATIVE (NEGATIVE); Opiate Scree,Urine NEGATIVE (NEGATIVE); Phencyclidine Screen, Urine NEGATIVE (NEGATIVE)
[2017-07-11] MEDS ORDERED: NAPROXEN 500 MG TAB PO ONE (11:00)
[2017-07-11] MEDS ORDERED: ACETAMINOPHEN 500 MG TAB PO ONE (11:00)
[2017-07-11] MEDS ORDERED: cefTRIAXone 1GM/10ml IVPUSH 10 ML IV ONE (11:00)
[2017-07-11] MEDS ORDERED: TETANUS-DIPTH-ACEL PERTUSSIS 0.5ML SYRG IM ONE (12:15)
[2017-07-11 12:30] VITALS: BP 133/86
== END 2017-07-11 12:49 | disposition short-term general hospital (02) ==
LOC: EDBD 07:09 → ER 07:09
DX: S82.852A Displaced trimalleolar fracture of left lower leg, initial encounter for closed fracture (principal); E10.65 Type 1 diabetes mellitus with hyperglycemia; F19.10 Other psychoactive substance abuse, uncomplicated; N39.0 Urinary tract infection, site not specified; E44.0 Moderate protein-calorie malnutrition; F15.10 Other stimulant abuse, uncomplicated; F10.10 Alcohol abuse, uncomplicated; K21.9 Gastro-esophageal reflux disease without esophagitis; F41.9 Anxiety disorder, unspecified; F12.10 Cannabis abuse, uncomplicated; F17.210 Nicotine dependence, cigarettes, uncomplicated; Z91.14 Patient's other noncompliance with medication regimen; Z79.4 Long term (current) use of insulin; Z59.0 Homelessness; W19.XXXA Unspecified fall, initial encounter; Y93.89 Activity, other specified; Y92.89 Other specified places as the place of occurrence of the external cause; Y99.8 Other external cause status
CPT/HCPCS: 29515; 36415; 71046; 73610; 73630; 80053; 80307; 81001; 81025; 83735; 84443; 85025; 90471; 90715; 96361; 96374; 99285; J7030

== ENCOUNTER 2019-06-03 00:36 | Emergency (ER) | payer MEDICAID ==
[~2019-06-03] VITALS: Ht 162.6 cm; Wt 63.5 kg
[~2019-06-03 00:36] MED LIST changes: +ATOR20TA50 PO; +CLIN300C8 PO; +LISI-646 PO; -METO-169 PO; +NIC21P TOP
[2019-06-03 01:17] LABS: Urine Amorphous Crystal FEW /hpf (None Seen); Urine Bacteria NONE SEEN /hpf (None Seen); Urine Blood Negative /uL (Negative); Urine Specific Gravity 1.023 (1.001-1.035); Urine WBC 3 /hpf (0 - 5)
[2019-06-03 01:23] LABS: Basophils # (auto) 0 uL; Basophils % (auto) 0.4 % (0.0-2.0); Eosinophils # (auto) 0 uL; Eosinophils % (auto) 0.1 % (0.0-7.0); Hematocrit 41.8 % (36.0-46.0); Hemoglobin 13.6 g/dL (12.2-16.2); Lymphocytes # (auto) 2.5 uL; Lymphocytes % (auto) 31.7 % (10.0-50.0); Mean Corpuscular Hemoglobin 29.2 pg (28.0-32.0); Mean Corpuscular Hgb Conc. 32.5 g/dL (32.0-36.0); Monocytes # (auto) 0.6 uL; Monocytes % (auto) 7.2 % (0.0-12.0); Neutrophils # (auto) 4.8 uL; Neutrophils % (auto) 60.6 % (37.0-80.0); Platelet Count (auto) 230 10^3/uL (140-450); Red Blood Cells 4.65 10^6/uL (4.0-5.20); Red Cell Distribution Width 13.1 % (11.8-14.3); White Blood Cell 7.8 10^3/uL (4.4-10.8)
[2019-06-03 01:42] LABS: Albumin 2.7 g/dL (3.4-5.0); Calcium 8.3 mg/dL (8.5-10.1); Potassium 4.6 mmol/L (3.5-5.1)
[2019-06-03 01:45] LABS: BUN/Creatinine Ratio 18.9; Bilirubin, Total 0.3 mg/dL (0.2-1.0)
[2019-06-03] MEDS ORDERED: SODIUM CHLORIDE 0.9% 1,000 ML IV ONE (01:45)
[2019-06-03] MEDS ORDERED: LORazepam 2MG/ML-1ML VIAL IV ONE (02:15)
[2019-06-03] MEDS ORDERED: InsuLIN REG 1unit/0.01ml Soln (100units/ml) IV ONE ×2 (02:15→03:15)
[2019-06-03] MEDS ORDERED: SODIUM CHLORIDE 0.9% 2,000 ML IV ONE (02:15)
[2019-06-03 03:08] LABS: Alcohol, Urine < 3.0 mg/dL (0-5); Amphetamine Screen, Urine NEGATIVE (NEGATIVE); Barbiturate Scree,Urine NEGATIVE (NEGATIVE); Benzodiazephine Screen, Urine NEGATIVE (NEGATIVE); Cannabinoid Screen, Urine NEGATIVE (NEGATIVE); Cocaine Screen, Urine NEGATIVE (NEGATIVE); Opiate Scree,Urine NEGATIVE (NEGATIVE); Phencyclidine Screen, Urine NEGATIVE (NEGATIVE)
[2019-06-03 03:36] LABS: Salicylate 1.9 mg/dL (2.8-20.0)
[2019-06-03 03:39] LABS: Acetaminophen < 2.0 ug/mL (10-30)
[2019-06-03 04:18] VITALS: BP 148/80
== END 2019-06-03 05:07 | disposition home or self-care (01) ==
LOC: ER 00:37
DX: E10.65 Type 1 diabetes mellitus with hyperglycemia (principal); F11.10 Opioid abuse, uncomplicated; F15.10 Other stimulant abuse, uncomplicated; F17.210 Nicotine dependence, cigarettes, uncomplicated; F12.10 Cannabis abuse, uncomplicated; F41.9 Anxiety disorder, unspecified; F32.9 Major depressive disorder, single episode, unspecified; I10 Essential (primary) hypertension; E78.5 Hyperlipidemia, unspecified; K21.9 Gastro-esophageal reflux disease without esophagitis; Z59.0 Homelessness; Z79.899 Other long term (current) drug therapy
CPT/HCPCS: 36415; 36600; 80053; 80307; 80329; 81001; 82010; 82805; 82962; 84702; 85025; 96361; 96367; 96374; 96375; 99283; J1815; J2060; J7030

== ENCOUNTER 2021-01-06 00:34 | Inpatient (IN) | payer MEDICAID ==
[~2021-01-06] VITALS: Ht 170.2 cm; Wt 74.8 kg
[~2021-01-06 00:34] MED LIST changes: -CLIN300C8 PO; -IBUP800T24 PO; -LISI-646 PO; +LISI20TA28 PO; +MUPI2CRE17 EX
[2021-01-06] MEDS ORDERED: SODIUM CHLORIDE 0.9% 1,000 ML IV ONE (01:00)
[2021-01-06 01:20] LABS: Mean Corpuscular Hemoglobin 29.3 pg (28.0-32.0)
[2021-01-06 01:22] LABS: Hematocrit 44.3 % (36.0-46.0); Hemoglobin 11.9 g/dL (12.2-16.2); Mean Corpuscular Hgb Conc. 26.8 g/dL (32.0-36.0); Mean Corpuscular Volume 109.5 fL (80.0-100.0); Red Blood Cells 4.05 10^6/uL (4.0-5.20); Red Cell Distribution Width 15.8 % (11.8-14.3); White Blood Cell 29.9 10^3/uL (4.4-10.8)
[2021-01-06 01:29] LABS: Basophils % (manual) 0 (0.0-2.0); Blast Cells 0; Eosinophils % (manual) 0 (0-7); Metamyelocytes % 0; Myelocytes % 0; Promyelocytes % 0; Reactive Lymphocytes 0
[2021-01-06 01:39] LABS: Albumin 2.7 g/dL (3.4-5.0); Anion Gap 43 (5-15); Calcium 7.6 mg/dL (8.5-10.1); Chloride 68 mmol/L (98-107)
[2021-01-06 01:42] LABS: Alanine Aminotransferase 19 U/L (13-56); Aspartate Aminotransferase 21 U/L (15-37); Bilirubin, Total 0.6 mg/dL (0.2-1.0); GFR African American 14 mL/min; GFR Non-African American 11 mL/min; Total Protein 6.7 g/dL (6.4-8.2)
[2021-01-06 01:47] LABS: Alkaline Phosphatase 141 U/L (45-117)
[2021-01-06] MEDS ORDERED: SODIUM BICARBONATE 8.4 % INJ 50ML VIAL IV ONE ×5 (01:51→05:21)
[2021-01-06 01:57] LABS: BUN/Creatinine Ratio 19.6; Glucose 1376 mg/dL (74-106); Sodium 115 mmol/L (136-145)
[2021-01-06 01:58] LABS: Blood Urea Nitrogen 93 mg/dL (7-18); Carbon Dioxide 4 mmol/L (21-32); Potassium 7.5 mmol/L (3.5-5.1)
[2021-01-06] MEDS ORDERED: SODIUM CHLORIDE 0.9% 3,000 ML IV ONE (02:00)
[2021-01-06] MEDS ORDERED: DEXTROSE (50%) 50ML SYRG IV PRN ×3 (02:00→04:30)
[2021-01-06] MEDS ORDERED: levoFLOXacin 500MG 100 ML IV ONE (02:00)
[2021-01-06] MEDS ORDERED: InsuLIN REG 1unit/0.01ml Soln (100units/ml) IV ONE (02:00)
[2021-01-06 02:04] LABS: Band Neutrophils % (manual) 28; Lymphocytes % (manual) 5 (10.0-50.0); Monocytes % (manual) 5 (0-12)
[2021-01-06] MEDS ORDERED: LORazepam 2MG/ML-1ML VIAL IV ONE (02:30)
[2021-01-06] MEDS ORDERED: CALCIUM GLUC 1,000mg/50ml-NS 50 ML IV ONE ×2 (02:30→21:15)
[2021-01-06] MEDS: InsuLIN R (HUMAN) 100 UNITS in SODIUM CHL 0.9% 99 ML IV SCH ×6 (02:40→17:01)
[2021-01-06 02:41] LABS: Magnesium 3.3 mg/dL (1.6-2.6)
[2021-01-06 03:05] LABS: Phosphorus 14.6 mg/dL (2.5-4.90)
[2021-01-06 03:49] LABS: Alcohol, Urine 4.8 mg/dL (0-10); Amphetamine Screen, Urine POSITIVE (NEGATIVE); Barbiturate Scree,Urine NEGATIVE (NEGATIVE); Opiate Scree,Urine NEGATIVE (NEGATIVE); Phencyclidine Screen, Urine NEGATIVE (NEGATIVE)
[2021-01-06 03:50] LABS: Benzodiazephine Screen, Urine NEGATIVE (NEGATIVE); Cannabinoid Screen, Urine NEGATIVE (NEGATIVE); Cocaine Screen, Urine NEGATIVE (NEGATIVE)
[2021-01-06 03:52] LABS: Urine Bacteria NONE SEEN /hpf (None Seen); Urine Blood 2+ /uL (Negative); Urine Hyaline Cast MOD /lpf (0 - 2); Urine Mucus FEW (None Seen); Urine Specific Gravity 1.018 (1.001-1.035); Urine Sperm PRESENT /hpf (None Seen); Urine WBC 6 /hpf (0 - 5)
[2021-01-06] MEDS: ACCU-CHEK COMFORT CURVE STRIP VI SCH ×14 (04:23→22:28)
[2021-01-06] MEDS ORDERED: INSULIN LANTUS (GLARGINE) 1 /0.01ml (100units/ml) SC ONE (04:30)
[2021-01-06] MEDS ORDERED: NITROGLYCERIN 0.4 MG SL TAB SL PRN (04:30)
[2021-01-06] MEDS: SODIUM CHLORIDE 0.9% 1,000 ML IV SCH ×2 (04:30→06:53)
[2021-01-06] MEDS ORDERED: MORPHINE SULFATE INJECTION 2 MG/ML SYRG IV PRN (04:30)
[2021-01-06] MEDS ORDERED: SODIUM BICARBONATE 50ML VIAL 100 ML in SOD CHL 0.45% 1,000 ML IV SCH (04:30)
[2021-01-06] MEDS ORDERED: ONDANSETRON HCL 4 MG/2 ML VIAL IV PRN (04:30)
[2021-01-06] MEDS ORDERED: SODIUM CHLORIDE 0.9% 1,000 ML IV SCH (08:30)
[2021-01-06 08:57] LABS: Basophils # (auto) 0.2 10 ^3/uL (0-0.2); Basophils % (auto) 1.4 % (0.0-2.0); Eosinophils # (auto) 0 10 ^3/uL (0-0.8); Eosinophils % (auto) 0.2 % (0.0-7.0); Hematocrit 34.3 % (36.0-46.0); Hemoglobin 11.6 g/dL (12.2-16.2); Lymphocytes # (auto) 2.4 10 ^3/uL (0.4-5.4); Lymphocytes % (auto) 14.6 % (10.0-50.0); Mean Corpuscular Hgb Conc. 33.7 g/dL (32.0-36.0); Monocytes # (auto) 1.3 10 ^3/uL (0-1.3); Monocytes % (auto) 7.8 % (0.0-12.0); Neutrophils # (auto) 12.6 10 ^3/uL (1.6-8.6); Nucleated Red Blood Cells % 0.2 %; Red Blood Cells 3.99 10^6/uL (4.0-5.20); Red Cell Distribution Width 15.1 % (11.8-14.3); White Blood Cell 16.6 10^3/uL (4.4-10.8)
[2021-01-06 09:13] LABS: BUN/Creatinine Ratio 24.9; Calcium 7.1 mg/dL (8.5-10.1); Potassium 3.7 mmol/L (3.5-5.1)
[2021-01-06] MEDS: cefTRIAXone 1GM/50ML D5W 50 ML IV SCH (10:27)
[2021-01-06] MEDS ORDERED: ACETAMINOPHEN 650 MG RECT SUPP PR ONE ×2 (11:45→18:33)
[2021-01-06 13:26] LABS: BUN/Creatinine Ratio 28.1; Calcium 6.1 mg/dL (8.5-10.1); Potassium 3.3 mmol/L (3.5-5.1)
[2021-01-06] MEDS: D5W/SOD CHL 0.45% 1,000 ML IV SCH (13:58)
[2021-01-06 15:07] LABS: BUN/Creatinine Ratio 24.9; Calcium 6.6 mg/dL (8.5-10.1); Potassium 3.5 mmol/L (3.5-5.1)
[2021-01-06] MEDS: ACETAMINOPHEN 650 MG RECT SUPP PR PRN (18:47)
[2021-01-06 20:57] LABS: Calcium 6.6 mg/dL (8.5-10.1)
[2021-01-06 21:00] LABS: Potassium 2.9 mmol/L (3.5-5.1)
[2021-01-06] MEDS: POTASSIUM CHL 20MEQ/100ML 100 ML IV SCH ×2 (21:15→23:15)
[2021-01-06] MEDS: LORazepam 2MG/ML-1ML VIAL IV PRN (21:20)
[2021-01-07] MEDS: InsuLIN R (HUMAN) 100 UNITS in SODIUM CHL 0.9% 99 ML IV SCH (00:14)
[2021-01-07] MEDS: ACCU-CHEK COMFORT CURVE STRIP VI SCH ×9 (01:14→17:02)
[2021-01-07] MEDS: D5W/SOD CHL 0.45% 1,000 ML IV SCH (05:10)
[2021-01-07 05:22] LABS: Basophils # (auto) 0 10 ^3/uL (0-0.2); Basophils % (auto) 0.1 % (0.0-2.0); Eosinophils # (auto) 0 10 ^3/uL (0-0.8); Eosinophils % (auto) 0.4 % (0.0-7.0); Hematocrit 32.8 % (36.0-46.0); Hemoglobin 11.7 g/dL (12.2-16.2); Lymphocytes # (auto) 1.7 10 ^3/uL (0.4-5.4); Lymphocytes % (auto) 25.7 % (10.0-50.0); Mean Corpuscular Hemoglobin 29.9 pg (28.0-32.0); Mean Corpuscular Hgb Conc. 35.8 g/dL (32.0-36.0); Mean Corpuscular Volume 83.4 fL (80.0-100.0); Monocytes # (auto) 0.5 10 ^3/uL (0-1.3); Monocytes % (auto) 6.9 % (0.0-12.0); Neutrophils # (auto) 4.5 10 ^3/uL (1.6-8.6); Neutrophils % (auto) 66.9 % (37.0-80.0); Red Blood Cells 3.93 10^6/uL (4.0-5.20); Red Cell Distribution Width 15.1 % (11.8-14.3); White Blood Cell 6.8 10^3/uL (4.4-10.8)
[2021-01-07 06:20] LABS: Albumin 2.2 g/dL (3.4-5.0); BUN/Creatinine Ratio 20.6; Bilirubin, Total 0.4 mg/dL (0.2-1.0); Calcium 7.4 mg/dL (8.5-10.1); Potassium 3.2 mmol/L (3.5-5.1); Total Protein 5.5 g/dL (6.4-8.2)
[2021-01-07] MEDS ORDERED: POTASSIUM EFFERVESENT TAB 25 MEQ PO ONE (07:30)
[2021-01-07] MEDS: cefTRIAXone 1GM/50ML D5W 50 ML IV SCH (09:45)
[2021-01-07] MEDS ORDERED: INSULIN LANTUS (GLARGINE) 1 /0.01ml (100units/ml) SC SCH (10:00)
[2021-01-07] MEDS ORDERED: DEXTROSE (50%) 50ML SYRG IV PRN (12:00)
[2021-01-07] MEDS ORDERED: POTASSIUM CHLORIDE 40 MEQ, LIDOCAINE 1% (LOCAL ANESTH.) 4 ML in SODIUM CHL 0.9% 250 ML IV ONE (12:15)
[2021-01-07] MEDS: InsuLIN REG 1unit/0.01ml Soln (100units/ml) SC SCH ×2 (12:41→17:02)
[2021-01-07] MEDS: ACETAMINOPHEN 650 MG RECT SUPP PR PRN (14:12)
[2021-01-07] MEDS ORDERED: Glucerna Carbsteady SHAKE Vanilla 8oz PO SCH (18:00)
[2021-01-07 19:04] VITALS: BP 144/79
[2021-01-07] MEDS: LORazepam 2MG/ML-1ML VIAL IV PRN (19:59)
== END 2021-01-07 20:20 | disposition short-term general hospital (02) | DRG 812 ==
LOC: ER 00:51 → OVERFLOW 04:29
PROVIDERS: ADMIT Nurse Practitioner; ATTEND Internal Medicine
PROC: 06HM33Z Insertion of Infusion Device into Right Femoral Vein, Percutaneous Approach (ICD-10-PCS; principal; 2021-01-06)
PROC: 4A143B0 Monitoring of Venous Pressure, Central, Percutaneous Approach (ICD-10-PCS; 2021-01-06)
DX: T50.901A Poisoning by unspecified drugs, medicaments and biological substances, accidental (unintentional), initial encounter (principal); E11.10 Type 2 diabetes mellitus with ketoacidosis without coma; E44.0 Moderate protein-calorie malnutrition; G92 Toxic encephalopathy; I95.9 Hypotension, unspecified; E87.1 Hypo-osmolality and hyponatremia; E83.51 Hypocalcemia; E86.0 Dehydration; E87.6 Hypokalemia; I10 Essential (primary) hypertension; E78.5 Hyperlipidemia, unspecified; E87.5 Hyperkalemia; F19.239 Other psychoactive substance dependence with withdrawal, unspecified; F32.9 Major depressive disorder, single episode, unspecified; F41.9 Anxiety disorder, unspecified; K21.9 Gastro-esophageal reflux disease without esophagitis; R68.0 Hypothermia, not associated with low environmental temperature; Z20.822 Contact with and (suspected) exposure to COVID-19; Z80.1 Family history of malignant neoplasm of trachea, bronchus and lung; Z68.25 Body mass index [BMI] 25.0-25.9, adult; Z82.49 Family history of ischemic heart disease and other diseases of the circulatory system; Z91.14 Patient's other noncompliance with medication regimen; Y92.89 Other specified places as the place of occurrence of the external cause
CPT/HCPCS: 36415; 36600; 70450; 71045; 80048; 80053; 80307; 80320; 81001; 82010; 82805; 82962; 83605; 83735; 83930; 84100; 84443; 84484; 84702; 85007; 85025; 85027; 87040; 87086; 87426; 96361; 96365; 96366; 96368; 96375; 96376; 99291; G0378; J0696; J1815; J1956; J2001; J3480